=== PATIENT | male | born 1985 | race Caucasian/White ===

== ENCOUNTER → 2019-03-19 | Outpatient (CLI) | payer OTHER ==
[~2019-03-19] MED LIST: CARAFATE 1 GM TA1 GM PO; CARAFATE1 GM/10 ML PO; HYOSCYAMINE0.125 MG PO; ONDANSETRON ODT4 MG; PENICILLIN V P500 MG PO; PREVACID 24HR15 MG PO; XANAX 0.25 MG0.25 MG PO; ZOFRAN4 MG PO; [UNRECOGNIZED DRUG - REMARK]
== END ==
LOC: M.MRI 14:23
DX: M54.5 Low back pain (principal)